=== PATIENT | male | born 1940 | race Two or more races ===

== ENCOUNTER 2023-08-12 17:08 | Inpatient (IN) | payer OTHER ==
[~2023-08-12] VITALS: Ht 180.3 cm; Wt 104.3 kg
[~2023-08-12 17:08] MED LIST: ALLEGRA-D1 TAB.SR .; ATENOLOL50 MG; EXFORGE 5-320 M1 TAB; SIMVASTATIN20 MG; ULTRACET PO; VITORIN; ZOFRAN4 MG SL
[2023-08-12] MEDS ORDERED: COZAAR100 MG PO (18:14)
[2023-08-12] MEDS ORDERED: LEVOTHYROXINE25 MCG PO (18:14)
[2023-08-12] MEDS ORDERED: LUMIGAN2.5 M1 (18:14)
[2023-08-12] MEDS ORDERED: CILOSTAZOL50 MG PO (18:14)
[2023-08-12] MEDS ORDERED: ATORVASTATIN CA20 MG PO (18:14)
[2023-08-12] MEDS ORDERED: SINGULAIR10 MG (18:15)
[2023-08-12] MEDS ORDERED: ZYRTEC10 MG PO (18:15)
--- NOTE | 2023-08-12 18:15 | NUR ---
PTE ALERTA Y ORIENTADO X3, SE LE MARK ANTHONY S/V. SE OBSERVA CELLULITIS EN MANO DERECHA, SE UBICA EN ANALILIA DE ESPERA.
--- NOTE | 2023-08-12 18:24 | NUR ---
PTE ALERTA Y ORIENTADO X3, SE LE MARK ANTHONY S/V. PTE REFIERE TENER CELLULITIS EN MANO DERECHA DESDE HACE WILLIE SEMANA. SE OBSERVA CELLULITIS EN CODO DRECHO SE UBICA EN PIPO EN AREA DE OBSERVACION.
[2023-08-12] MEDS ORDERED: CEFTRIAXONE SODIUM 1,000 MG VIAL IV ONE (18:45)
[2023-08-12] MEDS ORDERED: 0.9 % SODIUM CHLORIDE 1,000 ML IV SCH ×2 (18:45→22:30)
--- NOTE | 2023-08-12 18:54 | NUR ---
PACIENTE EVALUADO POR DR THEODORE QUIEN [place] [facility], SE LE ORIENTA PACIENTE SOBRE EL MISMO Y VERBALIZA ENTENDER, SE LE COLECTAN MUESTRAS Y SE ADMINISTRAN MEDICAMENTOS CHERISE ORDEN. PENDIENTE ESTUDIO DE LOLI X.
[2023-08-12 19:29] LABS: HEMATOCRIT 40.5 % (39.0-48.0); HEMOGLOBIN 14.1 g/dL (13-16.00); MEAN CELL VOLUME 90.6 fL (80.0-100.00); MEAN CORPUSCULAR HEMOGLOBIN 31.7 pg (27.00-32.0); MEAN CORPUSCULAR HGB CONC 34.9 g/dl (32.0-36.0); PLATELET COUNT 285 K/uL (150-450); RED BLOOD COUNT 4.46 M/uL (4.00-6.00); RED CELL DISTRIBUTION WIDTH 14.1 % (11.5-14.5)
[2023-08-12 19:51] LABS: INR 1.13; PROTHROMBIN TIME 11.8 SECONDS (9.0-11.5)
[2023-08-12 19:54] LABS: CALCIUM 8.8 mg/dL (8.5-10.1); CREATININE SERUM 0.97 mg/dL (0.70-1.30); GFR 74.1; POTASSIUM 3.32 mEq/L (3.5-5.1)
[2023-08-12 22:05] LABS: URINE APPEARANCE Clear; URINE BILIRRUBIN Negative (NEGATIVE); URINE COLOR Yellow; URINE GLUCOSE Negative (NEGATIVE); URINE LEUKOCYTE Negative; URINE NITRATE Negative; URINE PROTEIN Trace (NEGATIVE); URINE UROBILINOGEN 0.2 E.U./dl
[2023-08-12 22:08] LABS: URINE EPITHELIAL CELLS 3.5 uL (0.0-38.8); URINE RBC 27.4 uL (0.0-20.8); URINE WBC 3.2 uL (0.0-23.2)
[2023-08-12 22:22] LABS: URINE BLOOD TRACE
[2023-08-12] MEDS ORDERED: VANCOMYCIN HCL 1,000 MG VIAL IV SCH (22:28)
[2023-08-12] MEDS ORDERED: ACETAMINOPHEN 500 MG GEL..CAP PO PRN (22:30)
[2023-08-12] MEDS ORDERED: DEXTROSE 50 % IN WATER 0.5 G/ML DISP.SYRIN IV PRN (22:45)
[2023-08-12] MEDS ORDERED: INSULIN LISPRO 1,000 UNIT/10 ML UNITS SUBCUTANEO PRN (22:45)
[2023-08-13 01:04] LABS: D DIMER 3.82 MG/L; PARTIAL THROMBOPLASTIN TIME 37.2 SECONDS (22.0-34.0)
[2023-08-13] MEDS ORDERED: LEVOTHYROXINE SODIUM 100 MCG TABLET PO SCH (06:00)
[2023-08-13] MEDS ORDERED: ENOXAPARIN SODIUM 40 MG/0.4 ML SYRINGE SUBCUTANEO SCH (09:00)
[2023-08-13] MEDS ORDERED: AMLODIPINE BESYLATE 5 MG TABLET PO SCH (09:00)
[2023-08-13] MEDS ORDERED: CEFTRIAXONE SODIUM 2,000 MG in 0.9 % SODIUM CHLORIDE 100 ML IV SCH (09:00)
[2023-08-13] MEDS ORDERED: ATORVASTATIN CALCIUM 20 MG TABLET PO SCH (09:00)
[2023-08-13] MEDS ORDERED: LOSARTAN POTASSIUM 100 MG TABLET PO SCH (09:00)
[2023-08-13] MEDS ORDERED: FAMOTIDINE/PF 20 MG in 0.9 % SODIUM CHLORIDE 8 ML IV PUSH SCH (09:00)
[2023-08-13] MEDS ORDERED: CARVEDILOL 3.125 MG TABLET PO SCH (09:00)
[2023-08-13] MEDS ORDERED: INSULIN LISPRO 1,000 UNIT/10 ML UNITS SUBCUTANEO PRN (12:15)
[2023-08-13] MEDS ORDERED: CEFEPIME HCL 2,000 MG VIAL IV SCH (21:00)
[2023-08-13] MEDS ORDERED: VANCOMYCIN HCL 1,000 MG VIAL IV SCH (21:00)
[2023-08-14 06:47] LABS: HEMATOCRIT 35.8 % (39.0-48.0); HEMOGLOBIN 12.6 g/dL (13-16.00); MEAN CORPUSCULAR HEMOGLOBIN 31.1 pg (27.00-32.0); MEAN CORPUSCULAR HGB CONC 35.3 g/dl (32.0-36.0); PLATELET COUNT 244 K/uL (150-450); RED BLOOD COUNT 4.07 M/uL (4.00-6.00); RED CELL DISTRIBUTION WIDTH 14.1 % (11.5-14.5)
[2023-08-14 07:14] LABS: ALBUMIN 2.9 gm/dL (3.4-5.0); BILIRUBIN TOTAL 1.02 mg/dL (0.3-1.2); CALCIUM 7.9 mg/dL (8.5-10.1); CREATININE SERUM 0.87 mg/dL (0.70-1.30); GFR 84.01; GLOBULINA 3.1 G/DL (2.4-3.5); POTASSIUM 3.21 mEq/L (3.5-5.1); TSH 1.65 uIU/mL (0.358-3.74)
[2023-08-15] MEDS ORDERED: CEFAZOLIN SODIUM 2,000 MG in 0.9 % SODIUM CHLORIDE 100 ML IV SCH (17:00)
[2023-08-19 06:37] LABS: HEMATOCRIT 36.2 % (39.0-48.0); HEMOGLOBIN 12.6 g/dL (13-16.00); MEAN CELL VOLUME 87.3 fL (80.0-100.00); MEAN CORPUSCULAR HEMOGLOBIN 30.4 pg (27.00-32.0); MEAN CORPUSCULAR HGB CONC 34.8 g/dl (32.0-36.0); PLATELET COUNT 209 K/uL (150-450); RED BLOOD COUNT 4.14 M/uL (4.00-6.00); RED CELL DISTRIBUTION WIDTH 14.3 % (11.5-14.5)
[2023-08-19 07:08] LABS: ALBUMIN 3.2 gm/dL (3.4-5.0); BILIRUBIN TOTAL 1.65 mg/dL (0.3-1.2); CALCIUM 7.8 mg/dL (8.5-10.1); CREATININE SERUM 0.83 mg/dL (0.70-1.30); GFR 88.7; GLOBULINA 3.3 G/DL (2.4-3.5); MAGNESIUM 1.5 mg/dL (1.8-2.4); TOTAL PROTEIN 6.5 gm/dL (6.4-8.2)
[2023-08-19 07:26] LABS: C-REACTIVE PROTEIN 1.86 MG/DL (0.00-0.29); POTASSIUM 2.99 mEq/L (3.5-5.1)
[2023-08-19 07:27] LABS: PHOSPHOROUS 1.8 mg/dL (2.5-4.9)
[2023-08-19] MEDS ORDERED: POTASSIUM CHLORIDE IN WATER 100 ML IV ONE (08:00)
[2023-08-21 13:13] LABS: ALBUMIN 3.1 gm/dL (3.4-5.0); BILIRUBIN TOTAL 1.36 mg/dL (0.3-1.2); CALCIUM 8.4 mg/dL (8.5-10.1); CREATININE SERUM 0.76 mg/dL (0.70-1.30); GFR 98.19; GLOBULINA 3.2 G/DL (2.4-3.5); POTASSIUM 3.02 mEq/L (3.5-5.1); TOTAL PROTEIN 6.3 gm/dL (6.4-8.2)
== END 2023-08-21 17:07 | disposition home or self-care (01) | DRG 982 ==
LOC: ER 17:08 → SEC-K 22:33 → MEDJ 22:33
PROVIDERS: Emergency Medicine; General Practice; Internal Medicine Endocrinology, Diabetes & Metabolism; Internal Medicine Infectious Disease; ADMIT Internal Medicine; ATTEND Internal Medicine
PROC: 0JDJ0ZZ Extraction of Right Hand Subcutaneous Tissue and Fascia, Open Approach (ICD-10-PCS; 2023-08-13)
PROC: 02HV33Z Insertion of Infusion Device into Superior Vena Cava, Percutaneous Approach (ICD-10-PCS; principal; 2023-08-20)
DX: L03.113 Cellulitis of right upper limb (principal); L02.511 Cutaneous abscess of right hand; B95.61 Methicillin susceptible Staphylococcus aureus infection as the cause of diseases classified elsewhere; E03.9 Hypothyroidism, unspecified; E11.65 Type 2 diabetes mellitus with hyperglycemia; Z79.4 Long term (current) use of insulin; I25.10 Atherosclerotic heart disease of native coronary artery without angina pectoris; I11.9 Hypertensive heart disease without heart failure; Z95.0 Presence of cardiac pacemaker; Z20.822 Contact with and (suspected) exposure to COVID-19

== ENCOUNTER 2023-12-05 20:50 | Emergency (ER) | payer OTHER ==
[~2023-12-05] VITALS: Ht 180.3 cm; Wt 106.6 kg
[~2023-12-05 20:50] MED LIST changes: +ATORVASTATIN CA20 MG PO; +CILOSTAZOL50 MG PO; +COZAAR100 MG PO; +LEVOTHYROXINE25 MCG PO; +LUMIGAN2.5 M1; +SINGULAIR10 MG; +ZYRTEC10 MG PO
[2023-12-05] MEDS ORDERED: 0.9 % SODIUM CHLORIDE 1,000 ML IV SCH (21:45)
[2023-12-05] MEDS ORDERED: HYOSCYAMINE SULFATE 0.125 MG TAB.SUBL SL ONE (21:45)
[2023-12-05] MEDS ORDERED: FAMOtidine 10 MG/ML (4ML VIAL) IV PUSH ONE (21:45)
[2023-12-05 22:17] LABS: HEMATOCRIT 42.4 % (39.0-48.0); HEMOGLOBIN 14.9 g/dL (13-16.00); MEAN CELL VOLUME 86.3 fL (80.0-100.00); MEAN CORPUSCULAR HEMOGLOBIN 30.4 pg (27.00-32.0); MEAN CORPUSCULAR HGB CONC 35.2 g/dl (32.0-36.0); PLATELET COUNT 279 K/uL (150-450); RED BLOOD COUNT 4.91 M/uL (4.00-6.00)
[2023-12-05 23:45] LABS: ALBUMIN 3.5 gm/dL (3.4-5.0); BILIRUBIN TOTAL 2.52 mg/dL (0.3-1.2); BILIRUBIN,CONJUGATED 0.43 mg/dL (0.0-0.2); BILIRUBIN,UNCONJUGATED 2.09 mg/dL (0.0-0.6); CALCIUM 8.5 mg/dL (8.5-10.1); CREATININE SERUM 1.17 mg/dL (0.70-1.30); GFR 59.54; TOTAL PROTEIN 7.5 gm/dL (6.4-8.2)
[2023-12-05] MEDS ORDERED: POTASSIUM CHLORIDE 10 MEQ CAPSULE PO ONE (23:45)
[2023-12-05 23:47] LABS: POTASSIUM 2.89 mEq/L (3.5-5.1)
[2023-12-05] MEDS ORDERED: PEPCID AC20 MG PO (23:53)
== END 2023-12-06 01:31 | disposition home or self-care (01) ==
LOC: ER 20:52
PROVIDERS: General Practice
DX: E87.6 Hypokalemia (principal); K29.70 Gastritis, unspecified, without bleeding; R10.9 Unspecified abdominal pain; I10 Essential (primary) hypertension; E11.9 Type 2 diabetes mellitus without complications; Z88.6 Allergy status to analgesic agent; Z91.018 Allergy to other foods
CPT/HCPCS: 36415; 96365; 96366; 99282; J3490; J7030

== ENCOUNTER 2024-03-20 18:30 | Emergency (ER) | payer OTHER ==
[~2024-03-20] VITALS: Ht 180.3 cm; Wt 104.3 kg
[~2024-03-20 18:30] MED LIST changes: +PEPCID AC20 MG PO
[2024-03-20 20:29] LABS: HEMATOCRIT 39.2 % (39.0-48.0); HEMOGLOBIN 13.9 g/dL (13-16.00); MEAN CELL VOLUME 87.9 fL (80.0-100.00); MEAN CORPUSCULAR HEMOGLOBIN 31.1 pg (27.00-32.0); MEAN CORPUSCULAR HGB CONC 35.4 g/dl (32.0-36.0); PLATELET COUNT 251 K/uL (150-450); RED BLOOD COUNT 4.46 M/uL (4.00-6.00); RED CELL DISTRIBUTION WIDTH 13.8 % (11.5-14.5)
[2024-03-20 21:01] LABS: INR 1.03; PARTIAL THROMBOPLASTIN TIME 34.7 SECONDS (22.0-34.0); PROTHROMBIN TIME 11.2 SECONDS (9.0-11.5)
[2024-03-20 21:14] LABS: ALBUMIN 3.4 gm/dL (3.4-5.0); BILIRUBIN TOTAL 1.11 mg/dL (0.3-1.2); CREATININE SERUM 1.08 mg/dL (0.70-1.30); GFR 65.3; GLOBULINA 3.1 G/DL (2.4-3.5); TOTAL PROTEIN 6.5 gm/dL (6.4-8.2)
[2024-03-21 05:54] LABS: POTASSIUM 2.93 mEq/L (3.5-5.1)
== END 2024-03-21 01:40 | disposition home or self-care (01) ==
LOC: ER 18:32
PROVIDERS: Emergency Medicine
DX: R07.89 Other chest pain (principal); B34.9 Viral infection, unspecified; Z20.822 Contact with and (suspected) exposure to COVID-19; E11.9 Type 2 diabetes mellitus without complications; Z79.84 Long term (current) use of oral hypoglycemic drugs; I10 Essential (primary) hypertension; Z88.6 Allergy status to analgesic agent; Z95.0 Presence of cardiac pacemaker

== ENCOUNTER 2024-10-23 19:20 | Inpatient (IN) | payer OTHER ==
[~2024-10-23] VITALS: Ht 180.3 cm; Wt 108.9 kg
[2024-10-23] MEDS ORDERED: LIPITOR20 MG PO (19:57)
[2024-10-23] MEDS ORDERED: CARVEDILOL3.125 M1 PO (19:57)
[2024-10-23] MEDS ORDERED: COZAAR100 MG PO (19:57)
[2024-10-23] MEDS ORDERED: VIAGRA100 MG PO (19:58)
[2024-10-23] MEDS ORDERED: LUMIGAN2.5 M1 OP (19:58)
[2024-10-23] MEDS ORDERED: ZYRTEC10 M3 PO (19:58)
[2024-10-23] MEDS ORDERED: INDAPAMIDE1.25 MG PO (19:58)
[2024-10-23] MEDS ORDERED: PROTONIX40 M1 PO (19:58)
[2024-10-23] MEDS ORDERED: CILOSTAZOL100 MG PO (19:58)
[2024-10-23] MEDS ORDERED: AMLODIPINE-OLM1 EAC2 PO (19:59)
[2024-10-23] MEDS ORDERED: XOPENEX HFA15 GM IH (19:59)
[2024-10-23] MEDS ORDERED: GABAPENTIN800 MG (19:59)
[2024-10-23] MEDS ORDERED: JANUVIA100 MG PO (19:59)
[2024-10-23] MEDS ORDERED: SINGULAIR4 M1 PO (19:59)
[2024-10-23] MEDS ORDERED: UCERIS9 MG PO (20:00)
--- NOTE | 2024-10-23 20:05 | NUR ---
PACIENTE ALERTA Y ORIENTADO X3. REFIERE VENIR POR CELLULITIS EN AREA DE PIERNA DERECHA. SE OBSERVA AREA LEVEMENTE ENROJECIDA. REFIERE QUE RECIBIO ANTIBIOTICO SEPTRA PARA EL MISMO. SE ESTIMAN VITALES Y SE UBICA.
[2024-10-23 20:48] LABS: BASO % 0.6 % (0.1-1.2); EOS # 0.08 (0.04-0.54); HEMATOCRIT 37.4 % (40.1-51.0); LYMPH # 1.38 (1.18-3.74); MEAN CORPUSCULAR HEMOGLOBIN 30.1 pg (25.6-32.2); MONO # 0.71 (0.24-0.82); MONO % 8.7 % (4.7-12.5); NEUT # 5.88 (1.56-6.13); NEUT % 72.5 % (34.0-71.1); PLATELET COUNT 228 K/uL (163-369); RED BLOOD COUNT 4.32 M/uL (4.63-6.08); RED CELL DISTRIBUTION WIDTH 13.3 % (11.6-14.4)
--- NOTE | 2024-10-23 20:51 | NUR ---
SE EDUCA SOBRE [place] [facility], RAI REFIERE ENTENDER. SE EXTRAEN MUESTRAS DE LABORATORIO CHERISE ORDEN MEDICA.
[2024-10-23 20:54] LABS: ERYTHROCYTE SEDIMENTATION RATE 36 mm/hr (0-20)
[2024-10-23 21:19] LABS: CALCIUM 8.3 mg/dL (8.5-10.1); GFR 71.36
[2024-10-23 21:22] LABS: INR 1.18; PROTHROMBIN TIME 12.7 SECONDS (9.0-11.5)
[2024-10-23 21:25] LABS: POTASSIUM 2.98 mEq/L (3.5-5.1)
[2024-10-23 21:29] LABS: D DIMER 1.08 MG/L
[2024-10-23 21:30] LABS: PARTIAL THROMBOPLASTIN TIME 40.9 SECONDS (22.0-34.0)
[2024-10-23] MEDS ORDERED: POTASSIUM CHLORIDE IN WATER 100 ML IV SCH (22:52)
[2024-10-23] MEDS ORDERED: ENOXAPARIN SODIUM 40 MG/0.4 ML SYRINGE SUBCUTANEO SCH (22:55)
[2024-10-23] MEDS ORDERED: PANTOPRAZOLE SODIUM 40 MG/VIAL VIAL IV SCH (22:56)
[2024-10-23] MEDS ORDERED: ACETAMINOPHEN 500 MG GEL..CAP PO PRN (23:00)
[2024-10-23] MEDS ORDERED: 0.9 % SODIUM CHLORIDE 1,000 ML IV SCH (23:00)
[2024-10-24] MEDS ORDERED: PIPERACILLIN/TAZOBACTAM SODIUM 3.375 GM in DEXTROSE 5 % IN WATER 100 ML IV SCH
[2024-10-24 02:34] VITALS: BP 131/73
[2024-10-24 02:42] LABS: PHOSPHOROUS 2.4 mg/dL (2.5-4.9)
[2024-10-24 02:49] LABS: C-REACTIVE PROTEIN 0.68 MG/DL (0.00-0.29)
[2024-10-24 04:11] VITALS: BP 164/96; O2SAT 90
[2024-10-24] MEDS ORDERED: LEVOTHYROXINE SODIUM 100 MCG TABLET PO SCH (06:00)
[2024-10-24 08:11] LABS: URINE APPEARANCE Clear; URINE BILIRRUBIN Negative (NEGATIVE); URINE BLOOD Trace; URINE COLOR Yellow; URINE GLUCOSE Negative (NEGATIVE); URINE KETONE Negative (NEGATIVE); URINE LEUKOCYTE Negative; URINE NITRATE Negative; URINE PROTEIN Negative (NEGATIVE); URINE UROBILINOGEN 0.2 E.U./dl
[2024-10-24 08:12] LABS: URINE BACTERIA 4.8 uL (0.0-1933); URINE EPITHELIAL CELLS 2.5 uL (0.0-38.8); URINE RBC 35.7 uL (0.0-20.8)
[2024-10-24 08:25] LABS: URINE WBC 0.4 uL (0.0-23.2)
[2024-10-24 08:38] VITALS: BP 128/66
[2024-10-24] MEDS ORDERED: GABAPENTIN 800 MG TABLET PO SCH (09:00)
[2024-10-24] MEDS ORDERED: AMLODIPINE BESYLATE 5 MG TABLET PO SCH (09:00)
[2024-10-24] MEDS ORDERED: ATORVASTATIN CALCIUM 20 MG TABLET PO SCH (09:00)
[2024-10-24] MEDS ORDERED: LOSARTAN POTASSIUM 100 MG TABLET PO NR (12:00)
[2024-10-24 16:29] VITALS: BP 168/76; O2SAT 96
[2024-10-24] MEDS ORDERED: CEFTRIAXONE SODIUM 2,000 MG VIAL IV SCH (17:00)
[2024-10-24] MEDS ORDERED: POTASSIUM CHLORIDE 20MEQ/100ML H2O PB IV ONE (19:35)
[2024-10-25 01:35] VITALS: BP 148/73; O2SAT 90
[2024-10-25 08:08] LABS: CALCIUM 7.7 mg/dL (8.5-10.1); CREATININE SERUM 0.9 mg/dL (0.70-1.30); GFR 80.59; POTASSIUM 3.17 mEq/L (3.5-5.1)
[2024-10-25 08:16] VITALS: BP 100/52; O2SAT 92
[2024-10-25] MEDS ORDERED: LOSARTAN POTASSIUM 100 MG TABLET PO SCH (09:00)
[2024-10-25] MEDS ORDERED: POTASSIUM CHLORIDE IN WATER 40 MEQ/100 ML PIGGYBAG IV SCH (12:10)
[2024-10-25] MEDS ORDERED: MAGNESIUM SULFATE 50% 1,000 MG/2 ML VIAL IM NR (12:10)
[2024-10-25 19:18] VITALS: BP 153/80; O2SAT 96
[2024-10-26] VITALS: BP 132/67; O2SAT 95
[2024-10-26 08:56] VITALS: BP 160/80
[2024-10-26] MEDS ORDERED: GABAPENTIN800 MG PO (09:39)
[2024-10-26] MEDS ORDERED: SYNTHROID100 MCG PO (09:40)
[2024-10-26] MEDS ORDERED: MUPIROCIN1 G1 TOP (09:41)
[2024-10-26] MEDS ORDERED: CEFDINIR300 MG PO (09:41)
[2024-10-26] MEDS ORDERED: MOMETASONE FURO15 G2 TOP (09:42)
[2024-10-26] MEDS ORDERED: KETOCONAZOLE15 GM TOP (09:43)
[2024-10-27] MEDS ORDERED: PANTOPRAZOLE SODIUM 40 MG TABLET.DR PO SCH (09:00)
== END 2024-10-26 13:20 | disposition home or self-care (01) | DRG 603 ==
LOC: ER 19:50 → MEDI 22:58
PROVIDERS: General Practice; ADMIT Internal Medicine; ATTEND Internal Medicine
PROC: B54DZZZ Ultrasonography of Bilateral Lower Extremity Veins (ICD-10-PCS; principal; 2024-10-23)
PROC: [UNRECOGNIZED PROCEDURE] (2024-10-24)
DX: L03.115 Cellulitis of right lower limb (principal); L02.415 Cutaneous abscess of right lower limb; E03.9 Hypothyroidism, unspecified; E87.6 Hypokalemia; R60.0 Localized edema; E11.9 Type 2 diabetes mellitus without complications; E78.5 Hyperlipidemia, unspecified